=== PATIENT | male | born 1955 | race Caucasian/White ===

== ENCOUNTER 2020-01-18 15:32 | Emergency (ER) | payer BC ==
[~2020-01-18] VITALS: Ht 162.6 cm; Wt 73.8 kg
--- NOTE | 2020-01-18 15:58 | PHYS DOC ---
Past Medical History Past Medical History: High Cholesterol, Hypertension Past Surgical History: No Surgical History Smoking Status: Never Smoker Alcohol Use: Occasionally General Adult EDM: Chief Complaint: NEURO SYMPTOMS/DEFICITS HPI: HPI: Patient is a 64-year-old male who presents to the emergency department for evaluation. He states that at around 1230 today he began experiencing tinnitus bilaterally, more prominently in his left ear, along with some generalized dizziness which he describes as a sense of rotation. He also had some vague visual disturbances, which he is unable to further qualify. He denies any nausea, vomiting, chest pain, shortness of breath, extremity numbness, weakness, speech difficulties, although he does admit to a mild headache. He has not had any hearing loss. He states he has had some issues with more mild tinnitus on and off over the past several weeks, but it appeared worse today. He is feeling mostly better at this time. There are no alleviating or exacerbating factors to his symptoms. Review of Systems: Review of Systems: Constitutional: Denies fever or chills. [] Eyes: Denies change in visual acuity. [] HENT: Denies nasal congestion or sore throat. [] Respiratory: Denies cough or shortness of breath. [] Cardiovascular: Denies chest pain or edema. [] GI: Denies abdominal pain, nausea, vomiting, bloody stools or diarrhea. [] : Denies dysuria. [] Musculoskeletal: Denies back pain or joint pain. [] Integument: Denies rash. [] Neurologic: Deniesfocal weakness or sensory changes. [] Endocrine: Denies polyuria or polydipsia. [] Lymphatic: Denies swollen glands. [] Psychiatric: Denies depression or anxiety. [] Heart Score: Risk Factors: Risk Factors: DM, Current or recent (<one month) smoker, HTN, HLP, family history of CAD, obesity. Risk Scores: Score 0 - 3: 2.5% MACE over next 6 weeks - Discharge Home Score 4 - 6: 20.3% MACE over next 6 weeks - Admit for Clinical Observation Score 7 - 10: 72.7% MACE over next 6 weeks - Early Invasive Strategies Allergies: Allergies: Allergies Coded Allergies Type Severity Reaction Last Updated Verified No Known Drug Allergies 01/18/20 No Physical Exam: PE: PHYSICAL EXAM: CONSTITUTIONAL: Well developed, well nourished HEAD: normocephalic, atraumatic EENT: PERRL, EOMI. Conjunctivae normal color, sclerae non-icteric; moist mucous membranes. Tympanic membranes are normal bilaterally. NECK: Supple, non-tender; no meningismus. LUNGS: Lungs CTA, breathing even and unlabored. Normal air movement. HEART: Regular rate and rhythm, no murmur CHEST: No deformity; non-tender ABDOMEN: The abdomen is soft, and non-tender, no masses or bruits. EXTREM: Normal ROM; no deformity, no calf tenderness. Normal pulses palpable in all extremities. There is no pedal edema. SKIN: No rash; no diaphoresis NEURO: Alert; normal speech and cognition; CN's grossly intact; strength grossly intact without focal deficit. Toqreb-phvp-pwmqew and heel camacho testing is normal. Visual nielsen are intact by confrontation. There is no nystagmus. Sensation is grossly intact. NIH stroke scale score is 0. BACK: No CVA TTP. Current Patient Data: Labs: Laboratory Tests Test 01/18/20 15:38 01/18/20 15:40 Glucose (Fingerstick) 115 mg/dL White Blood Count 8.3 x10^3/uL Red Blood Count 4.47 x10^6/uL Hemoglobin 14.8 g/dL Hematocrit 42.7 % Mean Corpuscular Volume 96 fL Mean Corpuscular Hemoglobin 33 pg Mean Corpuscular Hemoglobin Concent 35 g/dL Red Cell Distribution Width 13.4 % Platelet Count 280 x10^3/uL Neutrophils (%) (Auto) 63 % Lymphocytes (%) (Auto) 24 % Monocytes (%) (Auto) 10 % Eosinophils (%) (Auto) 2 % Basophils (%) (Auto) 1 % Neutrophils # (Auto) 5.3 x10^3/uL Lymphocytes # (Auto) 2.0 x10^3/uL Monocytes # (Auto) 0.9 x10^3/uL Eosinophils # (Auto) 0.1 x10^3/uL Basophils # (Auto) 0.1 x10^3/uL Prothrombin Time 12.2 SEC Prothromb Time International Ratio 0.9 Sodium Level 140 mmol/L Potassium Level 4.0 mmol/L Chloride Level 103 mmol/L Carbon Dioxide Level 24 mmol/L Anion Gap 13 Blood Urea Nitrogen 10 mg/dL Creatinine 1.1 mg/dL Estimated GFR (Cockcroft-Gault) 67.6 BUN/Creatinine Ratio 9 Glucose Level 115 mg/dL Calcium Level 9.4 mg/dL Magnesium Level 2.0 mg/dL Total Bilirubin 0.5 mg/dL Aspartate Amino Transf (AST/SGOT) 63 U/L Alanine Aminotransferase (ALT/SGPT) 105 U/L Alkaline Phosphatase 96 U/L Troponin I Quantitative < 0.017 ng/mL Total Protein 7.4 g/dL Albumin 4.1 g/dL Albumin/Globulin Ratio 1.2 Current Medications Medications (Trade) Dose Ordered Sig/Leonard Route PRN Reason Start Time Stop Time Status Last Admin Dose Admin Aspirin (Aspirin Chewable) 324 mg 1X ONCE PO 01/18/20 16:00 01/18/20 16:01 DC 01/18/20 16:01 Meclizine HCl (Antivert) 25 mg 1X ONCE PO 01/18/20 16:00 01/18/20 16:01 DC 01/18/20 16:00 Iohexol (Omnipaque 350 Mg/ml) 75 ml 1X ONCE IV 01/18/20 16:30 01/18/20 16:31 DC 01/18/20 16:57 Laboratory Tests Test 01/18/20 15:38 Glucose (Fingerstick) 115 mg/dL (70-99) H Vital Signs: Vital Signs Date Time Temp Pulse Resp B/P (MAP) Pulse Ox O2 Delivery O2 Flow Rate FiO2 01/18/20 15:46 98.5 81 18 162/82 (108) 94 Room Air 98.5 EKG: EKG: Normal sinus rhythm with a normal rate, normal axis, normal intervals, there are no acute ischemic ST/T changes. [] Radiology/Procedures: Radiology/Procedures: PROCEDURE: PORTABLE CHEST 1V PORTABLE CHEST 1V History: Dizziness. Comparison: None. Findings: Mild left basilar linear atelectasis. No consolidation or pleural effusion. Normal heart size. No pneumothorax. Impression: 1. No acute cardiopulmonary process. PROCEDURE: CT HEAD WO CONTRAST Exam: CT head INDICATION: Dizziness TECHNIQUE: Sequential axial images through the head were obtained without the administration of IV contrast. Comparisons: None FINDINGS: No focal parenchymal lesion or hemorrhage is identified. There is no midline shift or sulcal effacement. No acute vascular territory infarction is identified. Moran-white distinction is preserved. The ventricular system is within normal limits without compression hydrocephalus. The basal cisterns are well maintained. The visualized portions of the paranasal sinuses and mastoid air cells are well-pneumatized. No acute fractures. IMPRESSION: No acute intracranial abnormality.[] PROCEDURE: CT ANGIOGRAPHY HEAD AND NECK EXAM: CT Angiogram of the Head and Neck INDICATION: Dizziness TECHNIQUE: CT images were obtained through the head per standard CTA protocol. Multiplanar and 3D reformatted images were generated from the CT dataset on an independent workstation. All CT scans performed at this facility utilize dose optimization techniques as appropriate to the exam, including the following: Automated exposure control and adjustment of the mA and/or KV according to patient size (this includes techniques or standardized protocols for targeted exams where dose is indication/reason for exam). IV CONTRAST: Administered COMPARISON: Noncontrast head CT the same day. FINDINGS: CTA HEAD: No high-grade large vessel stenosis, proximal or branch vessel occlusion, aneurysm, or vascular malformation. ANTERIOR CIRCULATION: Anterior and middle cerebral arteries are widely patent. ANTERIOR COMMUNICATING ARTERY: Patent. POSTERIOR COMMUNICATING ARTERIES: Present bilaterally and patent. POSTERIOR CIRCULATION: Vertebral and basilar arteries are widely patent. Bilateral posterior inferior cerebellar arteries (PICAs), anterior inferior cerebellar arteries (AICAs), and superior cerebellar arteries (SCAs) are visualized and patent. OTHER: No abnormal brain parenchymal enhancement. The paranasal sinuses, mastoid air cells, and tympanic cavities are clear. NECK CTA: AORTA: 3 vessel configuration of arch. No dissection or acute aortic injury. No hemodynamically significant great vessel origin stenosis. RIGHT CAROTID: Common and internal carotid arteries are widely patent, without evidence of flow limiting stenosis or dissection. LEFT CAROTID: Common and internal carotid arteries are patent. No evidence of flow limiting stenosis or dissection. There is mixed calcified and noncalcified plaque in the proximal left cervical ICA that results in less than 50 percent stenosis. VERTEBRAL ARTERIES: Right dominant No evidence of dissection or flow limiting stenosis. SUBCLAVIAN ARTERIES:Subclavian arteries are patent without stenosis. SOFT TISSUES: Soft tissues are unremarkable. Lung apices show centrilobular emphysema. Where applicable, evaluation of ICA stenosis was performed using NASCET criteria, where the site of greatest stenosis is compared to the diameter of the ICA distal to the carotid bulb. IMPRESSION: No evidence of arterial dissection, flow-limiting stenosis or large vessel occlusion in the arterial vessels of the head and neck. Course & Med Decision Making: Course & Med Decision Making Pertinent Labs and Imaging studies reviewed. (See chart for details) [] 5:30 PM: The patient's condition remains stable at this time. He is feeling almost completely better. His presentation and exam are not highly suggestive of a central etiology. His symptoms might be related to an inner ear issue, such as vestibular neuronitis, or peripheral vertigo. I discussed importance of close outpatient neurology and ENT follow-up and return precautions in detail. Carl Disclaimer: Carl Disclaimer: This electronic medical record was generated, in whole or in part, using a voice recognition dictation system. Departure Departure Impression: Primary Impression: Dizziness Additional Impression: Tinnitus Disposition: HOME, SELF-CARE Condition: STABLE Referrals: NON,STAFF (PCP) KAMINI SMALL MD, COLLEEN N MD Patient Instructions: Dizziness, Tinnitus, Vertigo Scripts Meclizine Hcl (MECLIZINE HCL) 25 Mg Tablet 25 MG PO Q6H PRN for Dizziness, #30 TAB Prov: JAZMINE KELLY MD 01/18/20 Prednisone (PREDNISONE) 20 Mg Tablet 40 MG PO DAILY for 5 Days, #10 TAB Prov: JAZMINE KELLY MD 01/18/20 JAZMINE KELLY MD Jan 18, 2020 15:58
[2020-01-18] MEDS ORDERED: MECLIZINE HCL 12.5 MG TABLET. PO ONE (16:00)
[2020-01-18] MEDS ORDERED: ASPIRIN CHEWABLE 81 MG TABLET. PO ONE (16:00)
[2020-01-18 16:06] LABS: BASO # 0.1 x10^3/uL (0.0-0.2); BASO % 1 % (0-3); EOS # 0.1 x10^3/uL (0.0-0.7); EOS % 2 % (0-3); HEMATOCRIT 42.7 % (39.0-53.0); HEMOGLOBIN 14.8 g/dL (13.0-17.5); LYMPH % 24 % (24-48); MEAN CORPUSCULAR HEMOGLOBIN 33 pg (25-35); MEAN CORPUSCULAR HGB CONC 35 g/dL (31-37); MEAN CORPUSCULAR VOLUME 96 fL (79-100); MONO # 0.9 x10^3/uL (0.0-1.1); MONO % 10 % (0-9); NEUT # 5.3 x10^3/uL (1.8-7.7); NEUT % 63 % (31-73); PLATELET COUNT 280 x10^3/uL (140-400); RED BLOOD COUNT 4.47 x10^6/uL (4.30-5.70); RED CELL DISTRIBUTION WIDTH 13.4 % (11.5-14.5); WHITE BLOOD COUNT 8.3 x10^3/uL (4.0-11.0)
[2020-01-18 16:14] LABS: CALCIUM 9.4 mg/dL (8.5-10.1); CREATININE 1.1 mg/dL (0.7-1.3); GFR 67.6
[2020-01-18 16:16] LABS: PROTHROMBIN TIME PATIENT 12.2 SEC (11.7-14.0)
[2020-01-18 16:20] LABS: ALBUMIN 4.1 g/dL (3.4-5.0); ALBUMIN/GLOBULIN RATIO 1.2 (1.0-1.7); TOTAL BILIRUBIN 0.5 mg/dL (0.2-1.0); TOTAL PROTEIN 7.4 g/dL (6.4-8.2)
[2020-01-18 16:25] VITALS: BP 135/80
[2020-01-18] MEDS ORDERED: IOHEXOL 350 MG/ML 100 ML VIAL. IV ONE (16:30)
--- NOTE | 2020-01-18 16:53 | RAD ---
Exam: CT head INDICATION: Dizziness TECHNIQUE: Sequential axial images through the head were obtained without the administration of IV contrast. Comparisons: None FINDINGS: No focal parenchymal lesion or hemorrhage is identified. There is no midline shift or sulcal effacement. No acute vascular territory infarction is identified. Moran-white distinction is preserved. The ventricular system is within normal limits without compression hydrocephalus. The basal cisterns are well maintained. The visualized portions of the paranasal sinuses and mastoid air cells are well-pneumatized. No acute fractures. IMPRESSION: No acute intracranial abnormality. Exposure: One or more of the following in the visualized dose reduction techniques were utilized for this examination: 1. Automated exposure control 2. Adjustment of the MA and/or KV according to patient size Use of iterative of reconstructive technique Electronically signed by: Shannen Julio MD (01/18/2020 4:50 PM) [id number]
--- NOTE | 2020-01-18 16:55 | RAD ---
PORTABLE CHEST 1V History: Dizziness. Comparison: None. Findings: Mild left basilar linear atelectasis. No consolidation or pleural effusion. Normal heart size. No pneumothorax. Impression: 1. No acute cardiopulmonary process. Electronically signed by: Brad Lima DO (01/18/2020 4:52 PM) [id number]
--- NOTE | 2020-01-18 17:13 | RAD ---
EXAM: CT Angiogram of the Head and Neck INDICATION: Dizziness TECHNIQUE: CT images were obtained through the head per standard CTA protocol. Multiplanar and 3D reformatted images were generated from the CT dataset on an independent workstation. All CT scans performed at this facility utilize dose optimization techniques as appropriate to the exam, including the following: Automated exposure control and adjustment of the mA and/or KV according to patient size (this includes techniques or standardized protocols for targeted exams where dose is indication/reason for exam). IV CONTRAST: Administered COMPARISON: Noncontrast head CT the same day. FINDINGS: CTA HEAD: No high-grade large vessel stenosis, proximal or branch vessel occlusion, aneurysm, or vascular malformation. ANTERIOR CIRCULATION: Anterior and middle cerebral arteries are widely patent. ANTERIOR COMMUNICATING ARTERY: Patent. POSTERIOR COMMUNICATING ARTERIES: Present bilaterally and patent. POSTERIOR CIRCULATION: Vertebral and basilar arteries are widely patent. Bilateral posterior inferior cerebellar arteries (PICAs), anterior inferior cerebellar arteries (AICAs), and superior cerebellar arteries (SCAs) are visualized and patent. OTHER: No abnormal brain parenchymal enhancement. The paranasal sinuses, mastoid air cells, and tympanic cavities are clear. NECK CTA: AORTA: 3 vessel configuration of arch. No dissection or acute aortic injury. No hemodynamically significant great vessel origin stenosis. RIGHT CAROTID: Common and internal carotid arteries are widely patent, without evidence of flow limiting stenosis or dissection. LEFT CAROTID: Common and internal carotid arteries are patent. No evidence of flow limiting stenosis or dissection. There is mixed calcified and noncalcified plaque in the proximal left cervical ICA that results in less than 50 percent stenosis. VERTEBRAL ARTERIES: Right dominant No evidence of dissection or flow limiting stenosis. SUBCLAVIAN ARTERIES:Subclavian arteries are patent without stenosis. SOFT TISSUES: Soft tissues are unremarkable. Lung apices show centrilobular emphysema. Where applicable, evaluation of ICA stenosis was performed using NASCET criteria, where the site of greatest stenosis is compared to the diameter of the ICA distal to the carotid bulb. IMPRESSION: No evidence of arterial dissection, flow-limiting stenosis or large vessel occlusion in the arterial vessels of the head and neck. Electronically signed by: Toya Saldivar MD (01/18/2020 5:10 PM) [id number]
[2020-01-18] MEDS ORDERED: MECL-75 PO (17:33)
[2020-01-18] MEDS ORDERED: PRED20TA PO (17:33)
--- NOTE | 2020-01-19 05:48 | EKG ---
[facility] [address] [place] [id number] Test Date: 2020-01-18 Test Time: 15:42:32 Pat Name: TYSON STEEL Department: Room: Gender: M Detention Worker: : [id number] Requested By: JAZMINE KELLY Order Number: [id number] Reading MD: Mark Lorenzo MD Measurements Intervals [place] Rate: 80 P: 70 ME: 174 QRS: 90 QRSD: 98 T: 28 QT: 348 QTc: 405 Interpretive Statements SINUS RHYTHM Electronically Signed On 01-19-2020 8:34:53 CDT by Mark Lorenzo MD
== END 2020-01-18 17:59 | disposition home or self-care (01) ==
LOC: ER 15:32
DX: H93.13 Tinnitus, bilateral (principal); R42 Dizziness and giddiness; H53.8 Other visual disturbances; E78.00 Pure hypercholesterolemia, unspecified; I10 Essential (primary) hypertension
CPT/HCPCS: 36415; 70450; 70496; 70498; 71045; 80053; 82962; 83735; 84484; 85025; 85610; 93005; 99285; Q9967; J8597